=== PATIENT | female | born 1945 | race Caucasian/White ===

== ENCOUNTER 2016-10-07 09:24 | Day surgery (SDC) | payer MEDICARE ==
[~2016-10-07] VITALS: Ht 162.6 cm; Wt 59.0 kg
[~2016-10-07 09:24] MED LIST: ATIVAN2 MG; CELEBREX100 MG; LIPITOR10 MG; LOSARTAN POTAS100 MG; PAMELOR25 MG; SYNTHROID0.088 M3
[2016-10-07 13:04] LABS: URINE BILIRUBIN - DIPSTICK NEGATIVE (NEG); URINE BLOOD NEGATIVE (NEG)
[2016-10-07 13:21] LABS: URINE SQUAMOUS CELLS OCC #/hpf (0-5)
--- NOTE | 2016-10-07 14:58 | Anesthesia Record ---
Anesthesia Record Part II Discharge time: 1515 Destination: Same day surgery PACU nurse assessment review? Yes Patient is: Stable Anesthesia complications? No at [id number]
--- NOTE | 2016-10-07 14:58 | Anesthesia Record ---
Anesthesia Record Part I Total IV fluids: 2500 EBL (ml): 30 Urine Output: 400 B/P: 143/76 % SaO2: 97 Pulse: 92 Resps: 16 Temp: 97.5 Patient is: Drowsy, Nasal O2, Stable Stable to PACU at: 1445 at 1452
--- NOTE | 2016-10-07 15:33 | Operative Note-Podiatry ---
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 Yao is a 71 y/o female who presents with pain to the right bunion and 2nd digit hammertoe. Patient had surgery 01/15/16 at [facility]: left Lapidus bunionectomy, PIPJ 2, and 2nd MPJ release. She complains of tightness to the dorsal aspect of the left 2nd MPJ. She had steroid injections and has been splinting it down. The patient has been taping/strapping the right bunion and 2nd toe down. The patient has tried modification of shoe gear, taping , strapping, inserts, ice, elevation, injections, and NSAIDs. After a long discussion with the patient in regards to the conservative vs. surgical treatment for the bunion deformity, the patient has elected to proceed with surgery because they have failed conservative treatment and continue to have pain and worsening symptoms affecting daily activities. The patient has been instructed on the planned procedure, all the risks vs. benefits of the procedure to include bleeding, infection, nerve and blood vessel damage, need for further surgery, delay in healing of soft tissue or bone, failure of the bones to heel, non-union, mal-union, prolonged pain and recovery, residual deformity, prolonged swelling, CRPS/RSD, dvt, and anesthetic complications. No guarantees were given. All questions fully answered. The patient verbalized understanding and agreed to proceed with surgery. Consent was obtained. On this date and time patient was deemed an appropriate surgical candidate. With informed consent signed, the patient was taken to the operating theater. The patient was positioned supine. General anesthesia was induced. Tourniquet was applied to the right mid-calf. Left Second Digit Extensor Tenotomy: The left foot was prepped and draped in the normal sterile fashion. 10 cc of 0.5% marcaine plain inserted in a local block. Attention was directed to the 2nd toe, where previous well healed surgical incision noted. There was some residual MPJ contracture. Utilizing a 15 blade, a percutaneous extensor tenotomy was performed and release of some contracture was noted. The wound was flushed. 4-0 Nylon was used to close the skin. Xeroform was applied, and the toe was splinted with a dry sterile dressing. Right Lapidus Bunionectomy: The right lower extremity was prepped and draped in normal sterile fashion. Attention was directed to the 1st metatarsophalangeal joint (MPJ), where a dorsal linear incision was mapped out extending proximally to the 1st metatarsocuneiform joint. The tourniquet was inflated at 225 mmHg. Dissection was carried thru skin and subcutaneous tissue with care taken to maintain surgical hemostasis and safely retract neurovascular structures. Dissection was then carried through deep fascia and T-out at the level of the 1st MPJ, exposed the met head. Attention was directed to the 1st interspace where a lateral release was performed, including release of the adductor tendon at its insertion on the base of the proximal phalanx and release of the fibular suspensory ligament. Some release of the contracture was noted. Attention was then directed proximal to the 1st MCJ, where increased sagittal plane ROM was appreciated. Using saw then hand resection with osteotome and currettes, the cartilage was removed from the met and distal cuneiform. The wound was flushed with copious amounts of saline. 2.0 drill bit was used to fenestrate the subchondral bone plate to good healthy bleeding bone. At this point, the bunion was reduced and temporary fixation inserted across the 1st MCJ. Position was checked under intra-op fluoroscopy. [employer] 3.5mm intra-fragmentary compression screw followed by Ortholoc lapidus plate and screws were then inserted in standard technique. Good apposition and position was noted. X-ray confirmed position and hardware was not in the NCJ. The wound was flushed. Attention was directed distally back to the MPJ, where power resection was used to remove the large dorsal medial eminence. A capsulotomy was performed to remove redundant tissue and repaired in an over and over fashion with 2-0 Vicryl. The wound was flushed with copious amounts of saline. 3-0 Vicryl was used to close deep tissue in a running fashion. 4-0 Monocryl was used to close subq layer in an interrupted fashion. Viaflow was inserted into the incision. Then the skin was closed with 5-0 Monocryl in a running subcuticular fashion. Right 2nd Digit PIPJ AD: Attention was directed to the right 2nd toe, where a dorsal linear incision was mapped out over PIPJ extending proximal to MPJ. Dissection was carried thru skin and sub q tissue, with care to maintain surgical hemostasis. Transverse tenotomy performed at the PIPJ, with release of the medial and lateral collateral ligaments. The head of the proximal and base of the middle phalanx was removed, exposing good cancellous bone. Utilizing standard technique, the [employer] phalanx medium implant was inserted. Right 2nd MPJ Release: Attention was directed to the MPJ, the extensor read fibers and ligaments were released. Release of contracture noted. Right 2nd Metatarsal Osteotomy/Steven: Attention was directed to the 2ns met, which was elongated. Saw was used to make a bone cut and shortening the 2nd met 3mm. Next a [employer] 2.0 mm cannulated screw was inserted without complication. Position was checked on intra-op fluoro and deemed adequate and stable. The wound was flushed with copious amounts of saline. 4-0 Monocryl was used to close subq layer in an interrupted fashion. 4-0 Nylon was used to close skin in an interrupted mattress fashion. Viaflow was inserted into the incision site. The tourniquet was deflated after 122 mins and immediate hyperemic response was noted to the digits. 10 cc of 0.5% marcaine plain inserted in a local block. The wounds were cleansed. Xeroform, dry sterile dressing was then applied followed by a below knee posterior splint. The patient was awoken from anesthesia and transferred to recovery with vital signs stable and neurovascular status intact. Materials: [employer]/Ortholoc lapidus plate and 3.5mm locking screws x 4 [employer] 3.5mm partially threaded cannulated compression screw x 1 [employer] 2.0mm cannulated screw x 1 Viaflow, Ignite Discharge/Plan: D/C home today when ready and vital signs stable. Patient is to maintain posterior splint clean dry and intact. Ice behind the knee and elevate on two pillows. Non weight bearing to the right lower extremity with DME assistance. Patient has the fracture boot, walker and rolling knee scooter. WBaT in post op shoe to left foot. Rx for Percocet 7.5 #40 given. Start vitamin D supplement. She has Zofran, Motrin. Obtain post op films, left foot and right foot, 3 views. Follow up with Siri GARCIA in one week for wound check. Follow up with me in 2 weeks. at [phone]
--- NOTE | 2016-10-07 15:50 | RADIOLOGY REPORT PS360 ---
FOOT-RT-3 VIEWS HISTORY: S/P RT BUNIONECTOMY, RT HAMMERTOE REPAIR 2ND DIGIT, BILAT ORDERING PHYSICIAN: MADELYN TORRES DPM PATIENT AGE: 71 years COMPARISON: 09/21/2016 FINDINGS: Study is obtained through a splint. The study could not be performed weight bearing due to recent surgery. There has been interval surgery of the right foot with a bone plate placed at the right first metatarsal parcel/cuneiforms junction medially along with a longitudinal screw through the first metatarsal partial junction and a transverse screw through the base of the first and second metatarsals. Bunionectomy has formed. There is good alignment of the first metatarsophalangeal junction with reduction of the previously noted hallux valgus. Status post hammertoe surgery of the second digit with A screw placed at the second PIP joint with a K wire extending through the this apparently hollowed screw into the second metatarsal phalangeal joint along with a screw at the head of the second metatarsal. IMPRESSION: Postsurgical changes from prior bunionectomy and hallux valgus repair as well as second hammertoe deformity repair as described above
[2016-10-07 17:09] VITALS: BP 138/75
--- NOTE | 2016-10-07 17:10 | RADIOLOGY REPORT PS360 ---
FOOT-LT-3 VIEWS HISTORY: Follow-up surgery/bunionectomy and hammertoe repair S/P RT BUNIONECTOMY, RT HAMMERTOE REPAIR 2ND DIGIT, BILAT ORDERING PHYSICIAN: MADELYN TORRES DPM PATIENT AGE: 71 years COMPARISON: 09/21/2016 FINDINGS: Postoperative exam performed. There is overlying bandage artifact of the mid to distal foot. There has been prior fusion of the first metatarsal and medial cuneiform as before. Prior hammertoe deformity surgery with fusion of the PIP joint of the second digit. 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 Previously noted medial subluxation of the proximal phalanx of the second digit appears somewhat less. IMPRESSION: Postsurgical changes with some decrease in the medial subluxation of the proximal phalanx of the second digit. Status post prior first metatarsal cuneiform fusion and hammertoe correction of the second digit
== END 2016-10-07 16:38 | disposition home or self-care (01) ==
LOC: SDC 09:24
PROVIDERS: Podiatrist
PROC: 0L8V0ZZ Division of Right Foot Tendon, Open Approach (ICD-10-PCS; principal; 2016-10-07 11:00)
PROC: 0QSN04Z Reposition Right Metatarsal with Internal Fixation Device, Open Approach (ICD-10-PCS; 2016-10-07 11:00)
DX: M20.41 Other hammer toe(s) (acquired), right foot (principal); M20.11 Hallux valgus (acquired), right foot; M21.611 Bunion of right foot; Z98.1 Arthrodesis status
CPT/HCPCS: J2405